=== PATIENT | female | born 1950 | race American Indian/Alaskan Native ===

== ENCOUNTER 2016-10-04 02:35 | Emergency (ER) | payer BC, OTHER ==
--- NOTE | 2016-10-04 03:17 | XRay Report ---
FINAL REPORT PROCEDURE: XR CHEST ROUTINE 2V TECHNIQUE: PA and lateral chest radiographs were obtained. CPT 03381 HISTORY: Dyspnea COMPARISON: No prior studies are available for comparison. FINDINGS: Heart: Normal. Mediastinum/Vessels: Normal. Lungs/Pleural space: Mild atelectasis bilateral lower lungs. Bony thorax: No acute osseous abnormality. Other: IMPRESSION: There is mild atelectasis in both lower lungs.
[2016-10-04 03:44] LABS: Bilirubin,Urine Negative (Negative); Blood,Urine Negative (Negative); Ketones,Urine Negative (Negative)
[2016-10-04 03:45] LABS: Bacteria,Urine 2+ /HPF (Negative); Leukocyte Esterase,Urine Negative (Negative); Nitrite,Urine Negative (Negative); Protein,Urine <30 mg dL mg/dL (Negative); RBC,Urine < 1.0 /HPF (0.0-6.0); Urobilinogen,Urine < 0.0 mg/dL (<2.0)
[2016-10-04 04:00] LABS: Partial Thromboplastin Time 26.9 Sec. (24.2-36.6)
[2016-10-04 04:01] LABS: INR 0.86 (0.87-1.13)
[2016-10-04 04:36] LABS: Alanine Aminotransferase 17 units/L (7-56); Albumin 4.3 g/dL (3.9-5); Albumin/Globulin Ratio 1.4 %; Alkaline Phosphatase 88 units/L (35-129); Anion Gap 20 mmol/L; Basophils % (Auto) 0.2 % (0.0-1.8); Blood Urea Nitrogen 24 mg/dL (7-17); Calcium 9.4 mg/dL (8.4-10.2); Carbon Dioxide 21 mmol/L (22-30); Chloride 104.7 mmol/L (98-107); Creatine Kinase 180 units/L (30-135); Creatine Kinase MB 1.9 ng/mL (0.0-4.0); Eosinophils % (Auto) 0.9 % (0.0-4.3); Glucose 111 mg/dL (65-100); Hematocrit 40.8 % (30.3-42.9); Hemoglobin 13.1 gm/dl (10.1-14.3); Lipase 51 units/L (13-60); Mean Corpuscular HGB Conc 32 % (30-34); Mean Corpuscular Volume 81 fl (79-97); Platelet Count 238 K/mm3 (140-440); Potassium 3.6 mmol/L (3.6-5.0); Red Blood Count 5.06 M/mm3 (3.65-5.03); Red Cell Distribution Width 16.6 % (13.2-15.2); Sodium 142 mmol/L (137-145); Total Protein 7.4 g/dL (6.3-8.2); White Blood Count 6.6 K/mm3 (4.5-11.0)
[2016-10-04 04:47] LABS: Mean Corpuscular Hemoglobin 26 pg (28-32)
[2016-10-04] MEDS ORDERED: NACL ONE (06:41)
--- NOTE | 2016-10-04 06:45 | Emergency Department Report ---
HPI - General Chief Complaint: Dyspnea/Respdistress Time Seen by Provider: 10/04/16 06:10 - HPI HPI: This is a 65-year-old -[place] female who presents to the emergency department, dropped off by family, with the complaint of paresthesias to the right arm, hand and foot that she describes as tingling, as well as some shortness of breath, that all started about 1:30 AM and woke her from sleep. She went to sleep about 12:45 AM last night. She denies any headache, slurred speech, vision change, headache, chest pain, nausea, vomiting, diaphoresis. She did not take anything for symptoms prior to presentation. The patient says that the symptoms have currently resolved. No recent travel or sick contacts at home. She has a past medical history of GERD, hypertension, hypercholesterolemia. She denies any history of MA, CVA, PE/DVT. Her primary care doctor is a Dr. Swain. As a secondary complaint, the patient says that she tripped over a rug about 1 week ago and since that time has been having pain to the inside of the left ankle. She has been ambulatory and denies any deformity but says that movement does increase her discomfort. ED Past Medical Hx - Past Medical History Previous Medical History?: Yes Hx Hypertension: Yes Hx GERD: Yes Additional medical history: high cholesterol. glacoma - Surgical History Past Surgical History?: Yes Additional Surgical History: hyst - Social History Smoking Status: Never Smoker Substance Use Type: None - Medications Home Medications: Home Medications Medication Instructions Recorded Confirmed Last Taken Type Bisoprolol/Hctz [Ziac 10-6.25] 1 tab PO QDAY 08/26/14 08/26/14 08/26/14 History Pantoprazole [Protonix] 40 mg PO QDAY #30 tablet 08/26/14 Unknown Rx Rosuvastatin Calcium [Crestor] 5 mg PO QHS 08/26/14 08/26/14 08/26/14 History amLODIPine [Norvasc] 10 mg PO DAILY 08/26/14 08/26/14 08/26/14 History ED Review of Systems ROS: Stated complaint: SHORTNESS OF BREATH Other details as noted in HPI Comment: All other systems reviewed and negative Constitutional: denies: chills, fever Eyes: denies: eye pain, eye discharge, vision change ENT: denies: ear pain, throat pain Respiratory: shortness of breath. denies: cough, wheezing Cardiovascular: denies: chest pain, palpitations Gastrointestinal: denies: abdominal pain, nausea, diarrhea Genitourinary: denies: urgency, dysuria, discharge Musculoskeletal: arthralgia (1 week history of left ankle pain). denies: back pain, joint swelling Skin: denies: rash, lesions Neurological: denies: headache, weakness, paresthesias Physical Exam - Physical Exam Vital Signs: Vital Signs 10/04/16 10/04/16 10/04/16 02:44 03:01 05:36 Temperature 98.3 F 97.6 F Pulse Rate 75 62 Respiratory 20 20 18 Rate Blood Pressure 154/71 Blood Pressure 139/60 [Left] O2 Sat by Pulse 98 97 98 Oximetry Physical Exam: GENERAL: The patient is well-developed well-nourished. HEENT: Normocephalic. Atraumatic. Extraocular motions are intact. Patient has moist mucous membranes. Pupils equal reactive to light bilaterally. No nystagmus. No facial asymmetry. NECK: Supple. Trachea is midline. CHEST/LUNGS: Clear to auscultation. There is no respiratory distress noted. HEART/CARDIOVASCULAR: Regular. There is no tachycardia. There is no gallop rub or murmur. ABDOMEN: Abdomen is soft, nontender. Patient has normal bowel sounds. There is no abdominal distention. SKIN: Skin is warm and dry. NEURO: The patient is awake, alert, and oriented. The patient is cooperative. The patient has no focal neurologic deficits. The patient has normal speech. Cranial nerves II through XII grossly intact. No pronator drift. No dysmetria. MUSCULOSKELETAL: There is no tenderness or deformity. There is no limitation range of motion. There is no evidence of acute injury. Muscle strength 5 out of 5 for upper and lower extremities bilaterally. Radial pulse +2 over 4 bilaterally. ED Course Vital Signs 10/04/16 10/04/16 10/04/16 02:44 03:01 05:36 Temperature 98.3 F 97.6 F Pulse Rate 75 62 Respiratory 20 20 18 Rate Blood Pressure 154/71 Blood Pressure 139/60 [Left] O2 Sat by Pulse 98 97 98 Oximetry ED Medical Decision Making - Lab Data Result diagrams: 10/04/16 03:08 10/04/16 03:08 - EKG Data -: EKG Interpreted by Me EKG shows normal: sinus rhythm, axis (borderline left axis deviation), intervals , QRS complexes, ST-T waves (nonspecific ST-T waves) Rate: normal - EKG Data Interpretation: nonspecific ST-T wave silviano - Radiology Data Radiology results: report reviewed, image reviewed interpreted by me: Chest x-ray did not show any acute process. Heart is normal shape and size. No effusions. No pneumothorax. No signs of pneumonia seen. CTA CHEST INDICATION: Elevated d-dimer, shortness of breath. COMPARISON: None similar. FINDINGS: Chest CTA performed following intravenous administration of 100 cc of Omnipaque 350. Rotational MIP's also obtained. Normal heart size. No effusions or size significant adenopathy. A right distal paratracheal lymph node is 7 mm in the short axis, axial image 66, series 2. No aortic aneurysm, dissection or suspicious pulmonary arterial filling defects, to the extent assessed. Descending thoracic and abdominal aortic atherosclerotic changes noted. Patent central airway. Approximately 10 cm distal esophagus though fluid filled and dilated up to 6.5 cm, not excluded for gastroesophageal reflux and/or hiatal hernia, amongst others. Thyroid size normal. Small 5 mm left thyroid lobe calcification superiorly possible, axial image 2, series 2. A 4 mm peripheral left upper lobe calcified granuloma, axial image 52. Mild right lung base atelectasis dependently. Right hemidiaphragm slightly elevated. Approximately 1 cm calcified gallstone. Numerous bilateral renal parapelvic cysts suspected. Approximately 1.4 cm left interpolar cortical cyst, axial image 230, series 2. Left renal cortical thinning/scarring anteroinferiorly also incompletely imaged as on axial image 258. Colonic diverticulosis and moderate colonic stool/possible constipation. Slight thoracic spine degenerative spurring. CONCLUSION: 1. No acute chest abnormality or CT evidence of pulmonary embolism in this patient with old healed granulomatous disease. 2. Various other incidental findings, including aortic atherosclerotic changes, dilated distal esophagus, cholelithiasis, diverticulosis and renal findings, amongst others, as described. Please correlate. Thank you for the opportunity to participate in this patient's care. Transcribed By: RS Dictated By: LOPEZ SELBY MD Electronically Authenticated By: LOPEZ SELBY MD Signed Date/Time: 10/04/[address] HEAD WITHOUT CONTRAST INDICATION: Right-sided paresthesias. COMPARISON: None similar. FINDINGS: Noncontrast head CT demonstrates normal ventricles and sulci without acute or recent infarct, hemorrhage, mass effect or midline shift. No abnormal extra-axial fluid collections. Slight, benign bilateral basal ganglia calcifications. Posterior fossa structures and basilar cisterns appear within normal limits. Symmetric eye globes. Clear aerated paranasal sinuses and mastoid air cells. Hypoplastic frontal sinuses bilaterally. Slight leftward nasal septal bowing partially imaged. Slight atherosclerotic internal carotid artery calcifications. Intact calvarium. Normal overlying scalp soft tissues. Few missing teeth and radiopaque dental material incidentally noted. CONCLUSION: No acute intracranial CT abnormality, as described. Thank you for the opportunity to participate in this patient's care. Transcribed By: RS Dictated By: LOPEZ SELBY MD Electronically Authenticated By: LOPEZ SELBY MD Signed Date/Time: 10/04/16 0729 - Medical Decision Making 65-year-old female presents with right-sided paresthesias and some shortness of breath since this morning. On physical exam she has no focal, motor or sensory deficits in her cranial nerves are intact. She would be a 0 on the NIH stroke scale. She had a CT of the head that did not show any acute process. After the CT came back negative she was given some aspirin to protect her. Patient's shortness of breath was evaluated as well with EKG, imaging and physical exam. Heart and lungs sounds are normal auscultation. EKG does not show any signs of ST elevation MA, ischemia or significant dysrhythmia. Patient's labs are mostly unremarkable. She had a slightly elevated d-dimer so a CT angiography of the chest was done. CT angiography did not show any pulmonary embolism, aortic dissection or any significant acute intrathoracic process. Patient's vital signs stable throughout her ED course. She was reevaluated multiple times for multiple hours and all of her symptoms have resolved and have not returned. She appears safe for discharge home at this time but understands to return immediately with any recurrence of her symptoms or any acute distress. Otherwise she will follow-up with her primary care doctor in the next few days. - Differential Diagnosis CVA, TIA, PE, MA Critical Care Time: No Critical care attestation.: If time is entered above; I have spent that time in minutes in the direct care of this critically ill patient, excluding procedure time. ED Disposition Clinical Impression: Paresthesias, Shortness of breath Left ankle pain Qualifiers: Chronicity: acute Qualified Code(s): M25.572 - Pain in left ankle and joints of left foot Disposition: DISCHARGED TO HOME OR SELFCARE Is pt being admited?: No Condition: Stable Instructions: Ankle Fracture (ED), Paresthesia (ED), Dyspnea (ED), Arthralgia ( ED) Additional Instructions: Please follow-up with your primary care doctor in the next few days without fail. It is also recommended that she follow-up with your orthopedist regarding your left ankle pain and possible fracture. I would remain in the splint and use crutches until you have followed up with your orthopedist. Return to the emergency department with any chest pain, shortness of breath, numbness, slurred speech, worsening of her symptoms or any acute distress. Referrals: HEIDI GODINEZ MD [Staff Physician] - 3-5 Days PRIMARY CAREMD [Primary Care Provider] - [facility] Time of Disposition: 09:35
--- NOTE | 2016-10-04 07:33 | Cat Scan Report ---
CT HEAD WITHOUT CONTRAST INDICATION: Right-sided paresthesias. COMPARISON: None similar. FINDINGS: Noncontrast head CT demonstrates normal ventricles and sulci without acute or recent infarct, hemorrhage, mass effect or midline shift. No abnormal extra-axial fluid collections. Slight, benign bilateral basal ganglia calcifications. Posterior fossa structures and basilar cisterns appear within normal limits. Symmetric eye globes. Clear aerated paranasal sinuses and mastoid air cells. Hypoplastic frontal sinuses bilaterally. Slight leftward nasal septal bowing partially imaged. Slight atherosclerotic internal carotid artery calcifications. Intact calvarium. Normal overlying scalp soft tissues. Few missing teeth and radiopaque dental material incidentally noted. CONCLUSION: No acute intracranial CT abnormality, as described. Thank you for the opportunity to participate in this patient's care.
--- NOTE | 2016-10-04 08:55 | Cat Scan Report ---
CTA CHEST INDICATION: Elevated d-dimer, shortness of breath. COMPARISON: None similar. FINDINGS: Chest CTA performed following intravenous administration of 100 cc of Omnipaque 350. Rotational MIP's also obtained. Normal heart size. No effusions or size significant adenopathy. A right distal paratracheal lymph node is 7 mm in the short axis, axial image 66, series 2. No aortic aneurysm, dissection or suspicious pulmonary arterial filling defects, to the extent assessed. Descending thoracic and abdominal aortic atherosclerotic changes noted. Patent central airway. Approximately 10 cm distal esophagus though fluid filled and dilated up to 6.5 cm, not excluded for gastroesophageal reflux and/or hiatal hernia, amongst others. Thyroid size normal. Small 5 mm left thyroid lobe calcification superiorly possible, axial image 2, series 2. A 4 mm peripheral left upper lobe calcified granuloma, axial image 52. Mild right lung base atelectasis dependently. Right hemidiaphragm slightly elevated. Approximately 1 cm calcified gallstone. Numerous bilateral renal parapelvic cysts suspected. Approximately 1.4 cm left interpolar cortical cyst, axial image 230, series 2. Left renal cortical thinning/scarring anteroinferiorly also incompletely imaged as on axial image 258. Colonic diverticulosis and moderate colonic stool/possible constipation. Slight thoracic spine degenerative spurring. CONCLUSION: 1. No acute chest abnormality or CT evidence of pulmonary embolism in this patient with old healed granulomatous disease. 2. Various other incidental findings, including aortic atherosclerotic changes, dilated distal esophagus, cholelithiasis, diverticulosis and renal findings, amongst others, as described. Please correlate. Thank you for the opportunity to participate in this patient's care.
[2016-10-04] MEDS ORDERED: BABY ASPIRIN PO ONE (08:59)
[2016-10-04 10:47] VITALS: BP 142/56
--- NOTE | 2016-10-04 11:35 | XRay Report ---
Left ankle: Ankle pain. There is an ununited apophysis involving the medial malleolus versus an old fracture with non-bony union. No current evidence of a fracture nor displacement. No soft tissue swelling. The bones are well-mineralized. Impressions: No acute finding.
== END 2016-10-04 10:46 | disposition home or self-care (01) ==
LOC: ED 02:35
DX: M25.572 Pain in left ankle and joints of left foot (principal); R20.2 Paresthesia of skin; R06.02 Shortness of breath; I10 Essential (primary) hypertension; K21.9 Gastro-esophageal reflux disease without esophagitis; E78.00 Pure hypercholesterolemia, unspecified
CPT/HCPCS: 29515; 36415; 70450; 71020; 71275; 73610; 80053; 81001; 82140; 82550; 82553; 83690; 83735; 84484; 85025; 85379; 85610; 85730; 93005; 93010; 99285; Q9967